=== PATIENT | male | born 1985 | race Caucasian/White ===

== ENCOUNTER 2019-12-20 12:10 | Emergency (ER) | payer OTHER ==
[~2019-12-20] VITALS: Ht 172.7 cm; Wt 139.7 kg
[2019-12-20 12:19] VITALS: Ht 172.7 cm; Wt 139.7 kg
[2019-12-20 13:35] LABS: BASOPHIL % 0.3 % (0-2); PLATELET COUNT 212 x10^3mcL (130-400); RED CELL DISTRIBUTION WIDTH 13.1 % (11.5-14.5)
[2019-12-20 13:45] LABS: CALCIUM 8.6 mg/dL (8.5-10.1); CARBON DIOXIDE 28.8 mmol/L (21-32); CHLORIDE SERUM 101 mmol/L (98-107); CREATININE SERUM 0.7 mg/dL (0.7-1.3); GFR1 > 60 mL/min; GLUCOSE SERUM 142 mg/dL (74-106); POTASSIUM SERUM 3.1 mmol/L (3.5-5.1); SODIUM SERUM 136 mmol/L (136-145)
[2019-12-20 13:50] LABS: ALKALINE PHOSPHATASE 116 U/L (46-116); ALT/SGPT 32 U/L (16-63); AST/SGOT 20 U/L (15-37); BILIRUBIN TOTAL 0.26 mg/dL (0.20-1.00); TOTAL PROTEIN, SERUM 7.5 g/dL (6.4-8.2)
[2019-12-20 13:51] LABS: ALBUMIN 3.1 g/dL (3.4-5.0)
[2019-12-20 14:11] LABS: UA SPECIFIC GRAVITY <=1.005 (1.005-1.035); microscopic required? YES; urine erythrocyte TRACE (NEGATIVE)
[2019-12-20 15:00] VITALS: BP 115/68
== END 2019-12-20 15:09 | disposition home or self-care (01) ==
LOC: ED 12:10
PROVIDERS: Emergency Medicine
DX: R42 Dizziness and giddiness (principal); Z86.011 Personal history of benign neoplasm of the brain; Z91.013 Allergy to seafood